=== PATIENT | female | born 1995 | race Caucasian/White ===

== ENCOUNTER 2017-04-14 03:09 | Emergency (ER) | payer SELFPAY ==
[2017-04-14 03:14] VITALS: RESP 16
[2017-04-14] MEDS ORDERED: DiphenhydrAMINE 50 mg/ml Inj IVP STA (04:45)
[2017-04-14] MEDS ORDERED: Sodium Chloride 0.9% 1,000 ML IV STA (04:45)
--- NOTE | 2017-04-14 05:12 | ED PDOC ---
Arrival/HPI - General Historian: Patient, Family - Critical Care Critical Care Minutes: 45 minutes - History of Present Illness Time/Duration: 1-3 hours Symptom Onset: Sudden Symptom Course: Improving Quality: Tightness Severity Level: 10 Activities at Onset: Rest Context: Home <SHRUTHI CHIRINOS - Last Filed: 04/14/17 07:24> <Genaro Allison - Last Filed: 04/15/17 00:21> - General Chief Complaint: Headache Time Seen by Provider: 04/14/17 03:45 - History of Present Illness Narrative History of Present Illness (Text): 04/14/17 05:12 21yo F with history of intermittent headaches (once every other week) who states she had a headache earlier tonight a/w n/v and fevers/chills. She has a hx of headaches for which she usually takes tylenol and they improve, however, she could not keep any meds down earlier tonight. she also complains of blurry vision and photophobia , that have now resolved. she denies chest pain, shortness of breath, abdominal pain, recent illness or any sick contacts. mom states that pt has had these headaches since 4th grade. (SHRUTHI CHIRINOS) Past Medical History - Provider Review Nursing Documentation Reviewed: Yes - Cardiac Hx Cardiac Disorders: No - Pulmonary Hx Respiratory Disorders: No - Neurological Hx Neurological Disorder: Yes Hx Headaches: Yes - HEENT Hx HEENT Disorder: No - Renal Hx Renal Disorder: No - Endocrine/Metabolic Hx Endocrine Disorders: No - Hematological/Oncological Hx Blood Disorders: No - Integumentary Hx Dermatological Disorder: No - Musculoskeletal/Rheumatological Hx Musculoskeletal Disorders: No - Gastrointestinal Hx Gastrointestinal Disorders: No - Genitourinary/Gynecological Hx Genitourinary Disorders: No - Psychiatric Hx Psychophysiologic Disorder: No Hx Substance Use: No <SHRUTHI CHIRINOS - Last Filed: 04/14/17 07:24> Family/Social History - Physician Review Nursing Documentation Reviewed: Yes Family/Social History: No Known Family HX Smoking Status: Never Smoked Hx Alcohol Use: No Hx Substance Use: No <SHRUTHI CHIRINOS - Last Filed: 04/14/17 07:24> Allergies/Home Meds <SHRUTHI CHIRINOS - Last Filed: 04/14/17 07:24> <Genaro Allison - Last Filed: 04/15/17 00:21> Allergies/Adverse Reactions: Allergies No Known Allergies Allergy (Verified 04/14/17 03:13) Review of Systems - Physician Review All systems were reviewed & negative as marked: Yes - Review of Systems Constitutional: Fevers, Other (chills) Eyes: Vision Changes, Photophobia (resolved) ENT: absent: Hearing Changes, Tinnitus, Rhinorrhea Respiratory: absent: SOB, Cough Cardiovascular: absent: Chest Pain, Palpitations Gastrointestinal: absent: Abdominal Pain Neurological: Headache. absent: Dizziness, Focal Weakness, Speech Changes, Facial Droop <SHRUTHI CHIRINOS Last Filed: 04/14/17 07:24> Physical Exam Vital Signs Reviewed: Yes Temperature: Afebrile Blood Pressure: Normal Pulse: Regular Respiratory Rate: Normal Appearance: Positive for: Well-Appearing Pain Distress: None Mental Status: Positive for: Alert and Oriented X 3 - Systems Exam Head: Present: Atraumatic, Normocephalic. No: Tenderness Pupils: Present: PERRL Extroacular Muscles: Present: EOMI Conjunctiva: Present: Normal Ears: Present: Normal Neck: Present: Normal Range of Motion. No: Meningeal Signs Respiratory/Chest: Present: Clear to Auscultation, Good Air Exchange. No: Accessory Muscle Use, Wheezes Cardiovascular: Present: Regular Rate and Rhythm, Normal S1, S2. No: Murmurs Abdomen: Present: Normal Bowel Sounds. No: Tenderness, Distention Upper Extremity: Present: Normal Inspection, Normal ROM Lower Extremity: Present: Normal Inspection, Normal ROM. No: Edema, CALF TENDERNESS Neurological: Present: CN II-XII Intact, Speech Normal, Motor Func Grossly Intact, Normal Sensory Function, Normal Cerebellar Funct Skin: Present: Warm, Dry Psychiatric: Present: Alert, Oriented x 3 <SHRUTHI CHIRINOS Last Filed: 04/14/17 07:24> Vital Signs Temp Pulse Resp BP Pulse Ox 04/14/17 07:30 98.8 F 77 16 111/85 99 04/14/17 03:13 98.2 F 83 16 122/88 100 Medical Decision Making - Critical Care Critical Care Minutes: 45 minutes - Lab Interpretations I have reviewed the lab results: Yes - EKG Interpretation Interpreted by ED Physician: Yes <SHRUTHI CHIRINOS Last Filed: 04/14/17 07:24> <Genaro Allison - Last Filed: 04/15/17 00:21> ED Course and Treatment: 04/14/17 05:31 Impression: 21yo F PMH headaches who presents with severe headache a/w n/v and f/c likely 2/ 2 migraine Differential Diagnosis included but are not limited to: r/o intracranial bleed, CVA, migraine, headache Plan: - Reassess and disposition - CT head - Labs - Reglan - Benadryl - IVF Progress Notes: EKG: Ordered, reviewed, and independently interpreted the EKG. Rate : 118 BPM Rhythm : Sinus tachycardia Interpretation : ST & T wave abnormality, consider inferolateral ischemia Comparison : No previous EKG for comparison. 04/14/17 07:07 reassessment: pt feeling better, denies headache, n/v. per family, pt at baseline. educated about follow up with neurologist and PMD 04/14/17 07:24 EXAM: CT Head Without Intravenous Contrast EXAM DATE/TIME: 04/14/2017 4:27 AM CLINICAL HISTORY: 21 years old, female; Pain; Headache; Headache not specified; Additional info: Headache w/ n/v TECHNIQUE: Axial computed tomography images of the head/brain without intravenous contrast. All CT scans at this facility use one or more dose reduction techniques, viz.: automated exposure control; ma/kV adjustment per patient size (including targeted exams where dose is matched to indication; i.e. head); or iterative reconstruction technique. COMPARISON: No relevant prior studies available. FINDINGS: There is no hemorrhage. No edema, midline shift or mass effect is noted. There is normal carmichael white differentiation. Ventricles, cisterns and sulci are normal for age. Calvarium is unremarkable. Included paranasal sinuses and mastoids are clear. IMPRESSION: No acute cerebral hemorrhage or edema. Thank you for allowing us to participate in the care of your patient. Dictated and Authenticated by: Nae Lopez MD 04/14/2017 7:22 AM Eastern Time ([place] & [place]) (SHRUTHI CHIRINOS) 04/14/17 05:00 Pt. seen and evaluated with the medical voucher clerk.Agree with HPI,clinical findings,assessment and treatment plan (Genaro Allison) - Lab Interpretations Lab Results: 04/14/17 05:30 04/14/17 05:30 Lab Results 04/14/17 05:30: Sodium 142, Potassium 4.2, Chloride 102, Carbon Dioxide 28, Anion Gap 16, BUN 15, Creatinine 0.6, Est GFR ( Amer) > 60, Est GFR (Non- Af Amer) > 60, Random Glucose 96, Calcium 10.1, Total Bilirubin 0.4, AST 34, ALT 33, Alkaline Phosphatase 50, Troponin I < 0.01, Total Protein 8.3, Albumin 4.9 H, Globulin 3.4, Albumin/Globulin Ratio 1.4 04/14/17 05:30: PT 11.0, INR 1.02, APTT 28.8 04/14/17 05:30: WBC 5.6, RBC 5.03, Hgb 14.2, Hct 40.9, MCV 81.3, MCH 28.2, MCHC 34.7, RDW 13.2, Plt Count 275, MPV 10.2, Gran % 60.4, Lymph % (Auto) 29.2, [place] % (Auto) 8.9 H, Eos % (Auto) 1.1 L, Baso % (Auto) 0.4, Gran # 3.39, Lymph # 1.6 , [place] # 0.5, Eos # 0.1, Baso # 0.02 - RAD Interpretation Radiology Orders: 04/14/17 04:27 HEAD W/O CONTRAST [CT] Stat - Medication Orders Current Medication Orders: Discontinued Medications Diphenhydramine HCl (Benadryl) 25 mg IVP STAT STA Stop: 04/14/17 04:46 Last Admin: 04/14/17 05:05 Dose: 25 mg IVP Administration Document 04/14/17 05:05 RD (Rec: 04/14/17 06:14 RD [id number]) Charges for Administration # of IVP Administrations 1 Sodium Chloride (Sodium Chloride 0.9%) 1,000 mls @ 999 mls/hr IV .Q1H1M STA Stop: 04/14/17 05:45 Last Admin: 04/14/17 05:05 Dose: 999 mls/hr eMAR Start Stop Document 04/14/17 05:05 RD (Rec: 04/14/17 06:15 RD [id number]) Intravenous Solution Start Date 04/14/17 Start Time 05:05 End Date 09/30/17 End time 06:05 Total Infusion Time 60 Metoclopramide HCl (Reglan) 10 mg IVP STAT STA Stop: 04/14/17 04:46 Last Admin: 04/14/17 05:05 Dose: 10 mg IVP Administration Document 04/14/17 05:05 RD (Rec: 04/14/17 06:15 RD [id number]) Charges for Administration # of IVP Administrations 1 - PA / CAMPUS REP / Resident Statement / has reviewed & agrees with the documentation as recorded. / has examined the patient and agrees with the treatment plan. <Genaro Allison - Last Filed: 04/15/17 00:21> Disposition/Present on Arrival - Present on Arrival Any Indicators Present on Arrival: No History of DVT/PE: No History of Uncontrolled Diabetes: No Urinary Catheter: No History of Decub. Ulcer: No History Surgical Site Infection Following: None - Disposition Have Diagnosis and Disposition been Completed?: Yes Disposition Time: 07:08 Patient Plan: Discharge <SHRUTHI CHIRINOS - Last Filed: 04/14/17 07:24> <Genaro Allison - Last Filed: 04/15/17 00:21> - Disposition Diagnosis: Migraine Disposition: HOME/ ROUTINE Condition: GOOD Discharge Instructions (ExitCare): Migraine Headache (ED) Additional Instructions: - please take the Fioricent as prescribed every 6hours - please follow up at [facility], and consider Neurology outpatient - if you notice worsening of headaches, more nausea/vomiting or any focal deficits or slurring of speech, please go to ER for workup Prescriptions: Acetaminophen/Butalbital/Caf [Fioricet] 1 tab PO Q6 #12 tab Referrals: [facility] at [facility] [Outside] - Follow up with primary Forms: [employer] (Senegalese)
[2017-04-14 05:43] LABS: BASO # 0.02 K/mm3 (0.0-2.0); BASO % 0.4 % (0.0-3.0); EOS # 0.1 (0.0-0.7); EOS % 1.1 % (1.5-5.0); GRAN # 3.39 (1.4-6.5); GRAN % 60.4 % (50.0-68.0); HEMATOCRIT 40.9 % (36.0-48.0); LYMPH # 1.6 (1.2-3.4); LYMPH % 29.2 % (22.0-35.0); MEAN CELL VOLUME 81.3 fl (80.0-105.0); MEAN CORPUSCULAR HEMOGLOBIN 28.2 pg (25.0-35.0); MEAN CORPUSCULAR HGB CONC 34.7 g/dl (31.0-37.0); MEAN PLATELET VOLUME 10.2 fl (7.0-11.0); MONO # 0.5 (0.1-0.6); MONO % 8.9 % (1.0-6.0); RED CELL DISTRIBUTION WIDTH 13.2 % (11.5-14.5); WHITE BLOOD COUNT 5.6 10^3/ul (4.5-11.0)
[2017-04-14 05:49] LABS: ALB/GLOB RATIO 1.4 (1.1-1.8); ALKALINE PHOSPHATASE 50 U/L (38-126); ALT/SGPT 33 U/L (7-56); AST/SGOT 34 U/L (14-36); BILIRUBIN,TOTAL 0.4 mg/dL (0.2-1.3); BLOOD UREA NITROGEN 15 mg/dL (7-21); CALCIUM 10.1 mg/dL (8.4-10.5); CARBON DIOXIDE 28 mmol/L (21-33); CHLORIDE 102 mmol/L (98-107); GFR AFRICAN-AMERICAN > 60; GLUCOSE,RANDOM 96 mg/dL (70-110); POTASSIUM 4.2 mmol/L (3.6-5.0); SODIUM 142 mmol/L (132-148); TOTAL PROTEIN 8.3 g/dL (5.8-8.3)
[2017-04-14 05:54] LABS: INR 1.02 (0.93-1.08); PARTIAL THROMBOPLASTIN TIME 28.8 Seconds (23.7-30.8)
[2017-04-14 06:12] LABS: TROPONIN I < 0.01 ng/mL
--- NOTE | 2017-04-14 07:23 | CT ---
EXAM: CT Head Without Intravenous Contrast EXAM DATE/TIME: 04/14/2017 4:27 AM CLINICAL HISTORY: 21 years old, female; Pain; Headache; Headache not specified; Additional info: Headache w/ n/v TECHNIQUE: Axial computed tomography images of the head/brain without intravenous contrast. All CT scans at this facility use one or more dose reduction techniques, viz.: automated exposure control; ma/kV adjustment per patient size (including targeted exams where dose is matched to indication; i.e. head); or iterative reconstruction technique. COMPARISON: No relevant prior studies available. FINDINGS: There is no hemorrhage. No edema, midline shift or mass effect is noted. There is normal carmichael white differentiation. Ventricles, cisterns and sulci are normal for age. Calvarium is unremarkable. Included paranasal sinuses and mastoids are clear. IMPRESSION: No acute cerebral hemorrhage or edema.
[2017-04-14 07:52] VITALS: BP 111/85; PULSE 77; TEMP 98.8; O2SAT 99
--- NOTE | 2017-04-15 08:33 | CARD ---
APPROVED REPORT EKG Measurement Heart [id number] <Conclusion> Sinus tachycardia ST & T wave abnormality, consider inferolateral ischemia Prolonged QTc
== END 2017-04-14 08:02 | disposition home or self-care (01) ==
LOC: ED 03:09
DX: G43.909 Migraine, unspecified, not intractable, without status migrainosus (principal)
CPT/HCPCS: 70450; 80053; 84484; 85025; 85610; 85730; 93005; 96361; 96374; 96375; 99284; J1200; J2765; J7040